=== PATIENT | male | born 1960 | race Caucasian/White ===

== ENCOUNTER 2016-07-27 04:31 | Emergency (ER) | payer OTHER ==
--- NOTE | ~2016-07-27 | CT2 ---
[facility] A Service of [facility] RADIOLOGY TEXT RESULTS PATIENT: RONNI LEWIS LOCATION: [facility] : 56 UNIT #: [id number] AGE: [address]: Jaron Dawson MD SEX: M ORDER DR: [id number] [facility] [address] [place], [place] [address] [id number] MR#: [id number] Acc #: [id number] NAME: RONNI LEWIS. : 1960 SEX: M STUDY DATE/TIME: 07/27/2016 6:34 UNIT: [facility] ROOM: STUDY DESCRIPTION: CT Abd and Pelv W Cont Attending Physician: Jaron Dawson M.D. Ordering Physician: Ed Murphy Alves M.D. Primary Care Physician: Robbie Rodarte M.D. MEDICAL IMAGING REPORT This report is preliminary unless electronic signature is present EXAM Abdomen and pelvis CT with contrast. HISTORY Right-sided abdominal pain after falling 3 days ago. TECHNIQUE Axial images were obtained with intravenous contrast. 100 mL of Isovue was used. This CT exam was performed with one or more of the following radiation dose reduction techniques: automatic exposure control, adjustment of mA and/or kV according to patient size, and iterative reconstruction. FINDINGS Patchy infiltrates are seen at both lung bases posteriorly. The infiltrates are nonspecific. They could reflect atelectasis from splinting. There is no evidence of basilar pneumothorax. No lower rib fractures are seen. No upper abdominal solid organ abnormalities are noted. There is no evidence of retroperitoneal adenopathy or ascites. No distended bowel loops are seen. In the pelvis, there is no evidence of adenopathy, mass, or fluid collection. No lower thoracic or lumbar vertebral body fractures are noted. IMPRESSION Negative abdomen and pelvis CT except for lower lung field bibasilar infiltrates. This could reflect atelectasis from splinting. No evidence of a pneumothorax. No lower rib fracture is seen. Dictated by... Nicola Isaac M.D. [facility] A Service of [facility] RADIOLOGY TEXT RESULTS PATIENT: RONNI LEWIS LOCATION: [facility] #: [id number] : 56 UNIT #: [id number] AGE: [address]: Jaron Dawson MD SEX: M ORDER DR: THIS IS AN ELECTRONICALLY VERIFIED REPORT Nicola Isaac M.D. at 07/27/2016 3:26 PM CAM/natasha TD: 07/27/2016 09:56 JOB #: [id number] MEDICAL IMAGING REPORT COPY
[2016-07-27 05:05] LABS: BASOPHIL# 0.1 X10e3 (0-0.3); BASOPHIL% 0.5 % (0-2.5); EOSINOPHIL# 0.1 X10e3 (0-0.7); HEMATOCRIT 40.2 % (38.0-50.0); LYMPHOCYTE# 4.1 X10e3 (1.0-3.5); LYMPHOCYTE% 32.8 % (17.0-45.0); MEAN CELL VOLUME 86.5 FL (83-96); MEAN CORPUSCULAR HEMOGLOBIN 30.1 PG (28-34); MEAN CORPUSCULAR HGB CONC 34.8 g/dL (30-36); MEAN PLATELET VOLUME 6.5 FL (6.5-11.5); MONOCYTE# 0.8 X10e3 (0-1.0); MONOCYTE% 6.4 % (3.0-12.0); NEUTROPHIL# 7.4 X10e3 (1.5-7.1); NEUTROPHIL% 59.3 % (40-75); PLATELET COUNT 340 X10e3 (140-420); RED BLOOD COUNT 4.65 X10e (3.90-5.60); RED CELL DISTRIBUTION WIDTH 14.6 % (11.0-15.5); WHITE BLOOD COUNT 12.5 X10e3 (4.0-10.5)
[2016-07-27 05:10] LABS: DIFF IND NO
[2016-07-27 05:51] LABS: ALBUMIN SERUM 3.5 g/dL (3.5-5.0); ALKALINE PHOSPHATASE 112 U/L (32-92); ALT (SGPT) 21 U/L (10-40); AST (SGOT) 22 U/L (10-42); BILIRUBIN, DIRECT 0.3 mg/dL (0.0-0.2); BILIRUBIN,INDIRECT 0.4 mg/dL (0.0-0.9); BILIRUBIN,TOTAL 0.7 mg/dL (0.2-2.0); BLOOD UREA NITROGEN 12 mg/dL (9-23); CALCIUM SERUM 8.9 mg/dL (8.4-10.2); CARBON DIOXIDE 25 mmol/L (22-31); CHLORIDE 99 mmol/L (100-111); GLOM FILT RATE Estimated ABOVE60 mL/min (>60); GLUCOSE FASTING 120 mg/dL (70-110); POTASSIUM 3.3 mmol/L (3.5-5.1); PROTEIN TOTAL SERUM 7.4 g/dL (6.0-8.3); SODIUM 133 mmol/L (135-145)
== END 2016-07-27 09:05 | disposition home or self-care (01) ==
LOC: CED 04:31
PROVIDERS: Emergency Medicine
DX: S30.1XXA Contusion of abdominal wall, initial encounter (principal); J44.9 Chronic obstructive pulmonary disease, unspecified; B19.20 Unspecified viral hepatitis C without hepatic coma; F17.210 Nicotine dependence, cigarettes, uncomplicated; Z98.890 Other specified postprocedural states; W18.09XA Striking against other object with subsequent fall, initial encounter; Y92.009 Unspecified place in unspecified non-institutional (private) residence as the place of occurrence of the external cause
CPT/HCPCS: 36415; 74177; 80048; 80076; 83605; 85025; 96374; 96375; 99284; J1885; J2270; J2405; Q9967

== ENCOUNTER 2016-09-02 09:31 | Inpatient (IN) | payer OTHER ==
--- NOTE | ~2016-09-02 | DS ---
Unit #: [id number] #: [id number] Patient: RIC LEWIS [id number] [address] [place], [place] [address] [id number] I MR#: [id number] NAME: RIC LEWIS. ROOM: 216 Age: 56 Sex: M Admission Date: 09/02/2016 : 1960 Discharge Date: 09/06/2016 Attending Physician: Katelynn Gamboa M.D. Primary Care Physician: Robbie Rodarte M.D. DISCHARGE SUMMARY FINAL DIAGNOSES 1. Left forearm abscess and cellulitis secondary to intravenous drug abuse. 2. Status post incision and drainage by [facility]. 3. Hypertension, not controlled. 4. Chronic obstructive pulmonary disease. 5. History of depression/history of opiate use disorder. 6. History of alcohol abuse. 7. History of hepatitis C. 8. Tobacco abuse. DISCHARGE MEDICATIONS 1. Bactrim DS 1 tablet p.o. b.i.d. for 10 days. 2. Proventil inhaler b.i.d. Continue home dose. 3. Neurontin 600 mg t.i.d., which is a home dose. Continue. 4. Celexa 20 mg q.h.s. 5. Trazodone 75 mg at bedtime. 6. Lisinopril 20 mg daily. 7. Fish oil capsule daily. 8. Continue oxycodone at home. CONSULTATIONS DONE DURING HOSPITALIZATION 1. Dr. Almaguer for [facility]. 2. Dr. Jose Veliz from psychiatric service. 3. Infectious disease, Dr. Charles. PROCEDURES DONE Excisional debridement of an abscess on the left forearm posterolaterally. This procedure was performed by Dr. Almaguer on 09/04/2016. DIAGNOSTIC STUDIES LAB WORKUP ON DISCHARGE: Wound culture is positive for MRSA 1+. BMP shows sodium of 138, potassium 4, chloride 105, BUN 11, creatinine 0.9. CBC shows WBC 10.9, hemoglobin 14.2, hematocrit 41.8, platelet count of 310. Blood cultures were negative. HOSPITAL COURSE Mr. Ric Lewis is a 56-year-old male who has a history of IV drug abuse, was admitted because of left forearm cellulitis and abscess. He self injects himself. Ironically, he is in a needle-exchange program, but he does admit to licking his needles. The patient was admitted to the med/surg unit. [facility] was consulted. The patient had I and D done. Was on IV antibiotics during the hospitalization, which is being changed to Bactrim. Unit #: [id number] #: [id number] Patient: RIC LEWIS The patient's blood pressure was elevated during hospitalization. Blood pressure medications are being started. That needs to be continued as an outpatient, and blood pressure needs to be checked as per primary care provider. The patient was also seen by Dr. Jose Veliz for opiate use disorder, alcohol use disorder, major depressive disorder. The patient has been started on Celexa as per his recommendations and trazodone as per his recommendations. The patient is being discharged home in stable condition. PHYSICAL EXAMINATION VITAL SIGNS ON DISCHARGE: Blood pressure is 142/88, respiratory rate 20, pulse 69, temperature 97.6. RESPIRATORY: Chest has fair air entry. No adventitious sounds. CVS: S1, S2 positive. Regular rhythm. EXTREMITIES: Left forearm dressing is present. ABDOMEN: Soft. DISCHARGE INSTRUCTIONS 1. The patient is being discharged home in stable condition. 2. Home health consult is being done. 3. Continue wound care as per surgery. 4. Follow up with [facility], [phone], in one week. 5. Follow up with primary care provider in 1 week to follow up on blood pressure. 6. Prescriptions have been written for the patient. 7. Tobacco cessation counselling done. Dictated by... Shad Lucio TD: 09/07/2016 11:11 JOB #: [id number] DISCHARGE SUMMARY Page 1 of 1 X Katelynn Gamboa MD X DISCHARGE SUMMARY
--- NOTE | ~2016-09-02 | EKG ---
PATIENT: RONNI LEWIS UNIT #: [id number] Ventricular Rate: 91 BPM Atrial Rate: 91 BPM P-R Interval: 126 ms QRS Duration: 88 ms Q-T Interval: 362 ms QTC Calculation(Bezet): 445 ms P [place]: 67 degrees Calculated R [place]: 67 degrees Calculated T [place]: 65 degrees Diagnosis Line: Normal sinus rhythm Diagnosis Line: Normal ECG Diagnosis Line: No previous ECGs available Diagnosis Line: Confirmed by ART GAMBOA MD ([id number]) on 09/03/2016 Diagnosis Line: 10:45:38 PM INTERPRETING MD: BEE COLEY
--- NOTE | ~2016-09-02 | OR ---
Unit #: [id number] #: [id number] Patient: RONNI LEWIS [id number] [address] [place], [place] [address] [id number] I MR#: [id number] NAME: RONNI LEWIS ROOM: 216 Date of Procedure: 09/04/2016 Admission Date: 09/02/2016 Surgeon: Brandon Almaguer Jr., M.D. : 1960 Attending Physician: Katelynn Gamboa M.D. Primary Care Physician: Robbie Rodarte M.D. OPERATIVE REPORT INDICATIONS FOR PROCEDURE The patient is a 56-year-old black male, who is significantly obese, who initially presented complaining of several abscesses in the arms after injecting illicit drugs. He was noted to have an abscess of the left forearm dorsally and it was felt this should be incised, drained, and surgically debrided. He is brought to the operating room at this time for this procedure. He understands the procedure including the risks, including that of reinfection, nerve and tendon damage, and poor healing and consents. PREOPERATIVE DIAGNOSIS Acute and chronic abscess of the left forearm secondary to drug abuse. POSTOPERATIVE DIAGNOSES Acute and chronic abscess of the left forearm secondary to drug abuse, noting a pocket of approximately 3 cm of pus. ANESTHESIA General with LMA. PROCEDURES PERFORMED Incision and drainage and sharp excisional debridement using a #10 blade scalpel of an abscess of the left forearm posterolaterally. DESCRIPTION OF PROCEDURE The patient was positioned in supine position. After being anesthetized, his arm was placed in the supine position. After being prepped and draped in routine fashion, the area on the forearm, which was posterolateral was isolated and an incision was made in the most central portion of this, with a small amount of drainage of purulent material. This was all done with a #10 blade scalpel. The skin was then removed with the abscess being unroofed and cultures for aerobic and anaerobic organisms were sent. Additional debridement was performed with Metzenbaum scissors as well as a #10 blade scalpel and after hemostasis was achieved with Bovie cautery, the wound was irrigated with saline solution and packed with saline moist dry dressings. Sterile dressings were applied externally. Estimated blood loss less than 50 mL. The patient received less than 1000 mL crystalloid solution during the procedure. Sponges and instruments counts were correct x3. No drains were used. No complications. The patient was taken to the recovery room with stable vital signs in satisfactory condition. Unit #: [id number] #: [id number] Patient: RONNI LEWIS Dictated by... Brandon Almaguer Jr., M.Betsy. DAVID/sean TD: 09/05/2016 01:26 JOB #: [id number] OPERATIVE REPORT Page 1 of 1 X Brandon Almaguer MD X PROCEDURE OPERATIVE NOTE
--- NOTE | ~2016-09-02 | HP ---
Unit #: [id number] #: [id number] Patient: RONNI LEWIS [id number] [address] [place], [place] [address] [id number] I MR#: [id number] NAME: RONNI LEWIS. ROOM: 216 Age: 56 Sex: M Admission Date: 09/02/2016 : 1960 Attending Physician: Katelynn Gamboa M.D. Primary Care Physician: Robbie Rodarte M.D. HISTORY AND PHYSICAL HISTORY AND EXAM 56-year-old gentleman with a long history of IV drug abuse, presents to the hospital with cellulitis and abscess in the left forearm due to self-injection of heroin and methamphetamine. He says he last shot up last night. Ironically he is in the needle exchange program but he does admit to licking his needles. PAST MEDICAL HISTORY Opioid abuse, osteoarthritis, COPD, hepatitis C. PAST SURGICAL HISTORY He has had left hip replaced with a revision. He has had drainage of an abscess of the left foot. He also had drainage of the right upper extremity abscess. ALLERGIES The only allergy he knows of is Darvon. MEDICATIONS He is not on any home medications. CURRENT HOSPITAL MEDICATION Vancomycin and Zosyn. FAMILY HISTORY He is unaware of any chronic or inheritable diseases. SOCIAL HISTORY Lives with "a friend" and collects disability. Long history of opioid abuse to include cocaine, heroin and methamphetamine. He drinks a fifth of liquor on a daily basis. Smokes 1/2 pack a day. REVIEW OF SYSTEMS Unremarkable. CURRENT MEDICATIONS VITAL SIGNS: Temperature is 98.5, pulse 92, respiration 20, blood pressure 164/93. GENERAL: Awake, alert and oriented. Nehemias complected but otherwise unremarkable. CARDIAC: Regular rhythm. LUNGS: Clear. ABDOMEN: Soft. EXTREMITIES: Multiple track mckeon. In the left forearm he has an abscess Unit #: [id number] #: [id number] Patient: RONNI LEWIS with associated cellulitis. NEUROLOGIC: Grossly intact. DIAGNOSTIC STUDIES LABORATORY STUDIES: Chemistries generally unremarkable. White count 15,900, hemoglobin 16.3, platelets are 352,000. Blood cultures pending. IMAGING STUDIES: No x-rays. ASSESSMENT AND PLAN 56-year-old gentleman with an abscess of the left forearm secondary to long-term IV drug abuse. He is on appropriate antibiotics but will need incision and drainage in the morning. I discussed the procedure with the patient including risks, benefits, complications and postoperative expectations including open wound requiring packing. He understands and agrees to proceed. Dictated by Shad Nettles TD: 09/03/2016 05:28 JOB #: [id number] HISTORY AND PHYSICAL Page 1 of 1 X Nicola Wong MD X HISTORY AND PHYSICAL
--- NOTE | ~2016-09-02 | CO ---
Unit #: [id number] #: [id number] Patient: RIC LEWIS [id number] [facility] [address]. [place], [place] [address] [id number] I MR#: [id number] NAME: RIC LEWIS ROOM: 216 Age: 56 Sex: M Admission Date: 09/02/2016 : 1960 Attending Physician: Katelynn Gamboa M.D. Primary Care Physician: Robbie Rodarte M.D. Consultation Date: 09/05/2016 CONSULTATION REPORT REASON FOR CONSULTATION Followup. DISCUSSION Mr. Ric Lewis is a 56-year-old male, seen on 09/05/2016 in room 216, bed 1 at [facility]. The patient recovering from surgery, had an I and D done on his left wrist area. The patient reports still feeling sad, depressed, in pain, flat affect, sad, dysphoric but denied any suicidal or homicidal ideation. Denied any psychotic symptom. Compliant with medication. The patient's vital signs; temperature 98.4, pulse 81, respirations 20, blood pressure 153/99, oxygen saturation 100%. REVIEW OF SYSTEM Complete review of systems, the patient reported in pain and severe anxiety and depression. MENTAL STATUS EXAMINATION General appearance, the patient dressed casually. Attention span and concentration, fair. Speech, regular rate. Oriented in time, place, and person. Mood and affect, sad, and depressed. Thought process, coherent. Thought content, the patient denied any thoughts of harming self or others or any hallucination, but hopelessness, worthlessness, sad, depressed, tearful. Recent and remote memory, fair. Language, able to name object and repeat phrases. Fund of knowledge, fair. Insight and judgment, fair to slightly impaired. DIAGNOSES 1. Opioid use disorder, severe, F11.20. 2. Alcohol use disorder, severe, F10.20. 3. Major depressive disorder, recurrent, severe, F33.2. ASSESSMENT/PLAN 1. Supportive psychotherapy and psychoeducation provided to the patient. 2. Educated about benefits and side effects of medication and course and prognosis of illness. Advised to continue with current medication and if needed consider further adjustment of medication. The patient was started on Celexa 20 mg daily and Desyrel 75 mg at bedtime for sleep, and Vistaril 25 mg t.i.d. for anxiety. We will continue to follow. If needed, consider further adjustment of medication and if needed, consider transferring to [facility] after the patient is medically cleared. Dictated by... Jose Veliz M.D. Unit #: [id number] #: [id number] Patient: RIC LEWIS Ricardo FREDERICK/sean TD: 09/07/2016 01:54 JOB #: [id number] CONSULTATION REPORT Page 1 of 1 X Jose Veliz MD X CONSULTATION REPORT
--- NOTE | ~2016-09-02 | CO ---
Unit #: [id number] #: [id number] Patient: RONNI LEWIS [id number] [address] [place], [place] [address] [id number] I MR#: [id number] NAME: RONNI LEWIS. ROOM: 216 Age: 56 Sex: M Admission Date: 09/02/2016 : 1960 Attending Physician: Katelynn Gamboa M.D. Primary Care Physician: Robbie Rodarte M.D. Consultation Date: 09/03/2016 CONSULTATION REPORT The patient was admitted to Dr. Gamboa. REASON FOR CONSULTATION Antibiotic management in a patient with abscess. HISTORY OF PRESENT ILLNESS This is a 56-year-old male who is somewhat lethargic but is able to provide me with some history as well as review of chart. The patient has a history of IV drug abuse and reports that he came to the emergency room with swelling of his left forearm. The patient reports multiple injection sites of heroin to this area over the last few weeks and it has progressively gotten worse. The patient denies any fever or chills at home. He denies any other abscessed areas in any other parts of his body. He has multiple injection sites and track mckeon on his forearms. The patient was taken for an incision and drainage today; however, due to complications with the consent, it was rescheduled for tomorrow. The patient is currently back in the room. He denies any fever, chills. He does report occasional nausea. No vomiting or diarrhea. He reports minimal headache. PAST MEDICAL HISTORY 1. Opioid abuse. 2. Osteoarthritis. 3. COPD. 4. Hepatitis C. PAST SURGICAL HISTORY 1. Left hip replacement with revision. 2. History of abscess, left foot. ALLERGIES Darvon. MEDICATIONS 1. Vancomycin. 2. Zofran. For other medications, please refer to patient's MAR. SOCIAL HISTORY The patient lives with others. He has positive drug abuse including cocaine, heroin, and methamphetamine per the chart. He drinks a fifth of liquor per day. He smokes half pack per day. Unit #: [id number] #: [id number] Patient: RONNI LEWIS REVIEW OF SYSTEMS Negative except for as previously mentioned in the history of present illness. PHYSICAL EXAMINATION VITAL SIGNS: Temperature is 97.4, pulse is 92, blood pressure 163/92, and respiratory rate 18. GENERAL: This is a no apparent distress male, who is somewhat lethargic but able to answer questions and lying in the bed. HEENT: His pupils are equal. NECK: His neck is supple. CARDIOVASCULAR: S1, S2. Regular rate and rhythm. PULMONARY: Clear to auscultation bilaterally with no wheezes or rhonchi noted. ABDOMEN: Positive bowel sounds. Soft, nontender. EXTREMITIES: Left forearm with obvious abscess, erythema. No active drainage at this time. Positive tenderness. DIAGNOSTIC STUDIES LABORATORY: BUN 9, creatinine 0.9, sodium 136, potassium 4, chloride 103, CO2 of 24. Bilirubin 1, AST 30, ALT 26. White blood cell count 12.6 which is improved from 15.9, hemoglobin 14.8, hematocrit 43.6, platelets 290,000. Blood cultures are currently pending. IMAGING: No imaging studies available at this time. IMPRESSION This is a 56-year-old male with history of IV drug abuse, last reported the day prior to admission. The patient with multiple injection sites to the same vein in the left forearm now with abscess and cellulitis. At this time, agree with surgery recommendations for incision and drainage when available by their team. Will continue vancomycin and Zosyn. Will continue to follow along patient's blood cultures and leukocytosis and if he does have bacteremia, will need to be worked up for endocarditis. He is well covered with vancomycin and Zosyn at this time. Will have the nursing staff call with any positive blood cultures and check a CBC and BMP in the a.m. Thank you for allowing us to participate in the care of this patient. Further recommendations to follow pending patient's clinical course. Dictated by... Marii Cleveland A.P.R.N. for Shad Torrez/juan TD: 09/03/2016 11:19 JOB #: [id number] Unit #: [id number] #: [id number] Patient: RONNI LEWIS CONSULTATION REPORT Page 1 of 1 X X CONSULTATION REPORT
--- NOTE | ~2016-09-02 | CO ---
Unit #: [id number] #: [id number] Patient: RIC LEWIS [id number] [address] [place], [place] [address] [id number] I MR#: [id number] NAME: RIC LEWIS. ROOM: 216 Age: 56 Sex: M Admission Date: 09/02/2016 : 1960 Attending Physician: Katelynn Gamboa M.D. Primary Care Physician: Robbie Rodarte M.D. Consultation Date: 09/04/2016 CONSULTATION REPORT DISCUSSION Mr. Ric Alfonso is a 56-year-old male, seen as a followup on 09/04/2016 in room 216 at [facility]. The patient came back after I and D surgery. The patient still somewhat guarded and confused, but no agitation or aggression. The patient is tolerating medication fairly well. Unable to give any reliable information. Sad and depressed. REVIEW OF SYSTEMS Complete review of systems unremarkable. MENTAL STATUS EXAMINATION General appearance, the patient dressed casually in hospital attire. Attention span and concentration, fair. Speech, slow. Oriented in place. Mood and affect; sad, dysphoric, flat. Thought process, circumstantial. Thought content, guarded and paranoid. Recent and remote memory, poor. Language, intact. Fund of knowledge, poor. Insight and judgment, impaired. DIAGNOSES Psychiatric: 1. Opioid use disorder, severe, F11.20. 2. Alcohol use disorder, severe, F10.20. 3. Major depressive disorder, recurrent, severe, F33.2. 4. Delirium, F05. ASSESSMENT/PLAN 1. Supportive psychotherapy and psychoeducation provided to the patient. 2. Educated about benefits and side effects of medication and course and prognosis of illness. Advised to continue with current treatment. If needed, consider further adjustment of medication. Dictated by... Jose Veliz M.D. OTONIEL/sean TD: 09/05/2016 05:42 JOB #: [id number] Unit #: [id number] #: [id number] Patient: RIC LEWIS CONSULTATION REPORT Page 1 of 1 X Jose Veliz MD CONSULTATION REPORT
--- NOTE | ~2016-09-02 | HP ---
Unit #: [id number] #: [id number] Patient: RONNI LEWIS [id number] [address] [address] [id number] I MR#: [id number] NAME: RONNI LEWIS. ROOM: 216 Age: 56 Sex: M Admission Date: 09/02/2016 : 1960 Attending Physician: Katelynn Gamboa M.D. Primary Care Physician: Robbie Rodarte M.D. HISTORY AND PHYSICAL CHIEF COMPLAINT Left hand pain and swelling. HISTORY OF PRESENTING ILLNESS A 56-year-old gentleman who has a history of IV drug abuse, tobacco abuse, and alcohol abuse, presented to the ER complaining of left hand pain which was cellulitis and abscess. Patient injects himself with heroin and methamphetamine. He is in needle exchange program, but he licks his needles before injecting himself. He did not complain of fever, chills, or rigors, no complaint of nausea or vomiting, no complaint of abdominal pain, no complaint of chest pain, and no leg swelling or syncopal episode. PAST MEDICAL HISTORY 1. Chronic obstructive pulmonary disease. 2. Opioid abuse. 3. Osteoarthritis. 4. Hepatitis C. PAST SURGICAL HISTORY 1. Left hip replacement. 2. Left foot surgery. HOME MEDICATIONS 1. Fish oil capsule. 2. Oxycodone. 3. Ventolin inhaler. ALLERGIES No known drug allergies. SOCIAL HISTORY Patient is a smoker and smokes a half pack per day. He has been smoking for a long period of time. Patient does have a history of alcohol abuse. He drinks a half to one pint per day, but the last drink was 48 hours or so ago. Patient also has IV drug abuse history. REVIEW OF SYSTEMS As per History of Presenting Illness. PHYSICAL EXAMINATION GENERAL: Patient is lying in bed in no respiratory distress. VITAL SIGNS: T-max 99.6, blood pressure 128/60, respiratory rate 19, and Unit #: [id number] #: [id number] Patient: RONNI LEWIS pulse is 99. HEENT: Head is normocephalic. Eye movements are normal. NECK: Supple. CHEST: Fair air entry. No additional sounds. CARDIOVASCULAR: S1 and S2 positive. Regular rhythm. ABDOMEN: Soft. No tenderness, no rigidity. EXTREMITIES: Negative edema. Pulses are palpable. On the left forearm, there is an abscess with associated cellulitis. Multiple track mckeon are noted. CENTRAL NERVOUS SYSTEM: Awake, alert, and oriented x3, although yesterday he was pretty lethargic secondary to IV morphine. DIAGNOSTIC STUDIES LABORATORY: WBC 15.9, hemoglobin 16.3, hematocrit 47.1, and platelet count of 352,000. Sodium 132, potassium 3.6, chloride 99, BUN 9, and creatinine 0.8. Blood cultures are negative so far. ASSESSMENT Patient is being admitted to medical/surgical unit with: 1. Left arm cellulitis. 2. Left arm abscess. 3. History of IV drug abuse. 4. Hypertension. 5. Chronic obstructive pulmonary disease. 6. Hepatitis C. 7. Osteoarthritis. 8. Tobacco abuse. 9. Alcohol abuse. PLAN 1. Admit to med/surg. Dr. Wong has been consulted. Patient is scheduled for I and D. Pain medications are being prescribed. 2. Hypertension is not very well controlled. We are going to increase Zestril to 20 mg daily. 3. History of IV drug abuse, depression, and alcohol abuse. Dr. Veliz is being consulted for management. 4. Chronic obstructive pulmonary disease seems to be stable at this time. 5. Tobacco cessation counseling done. 6. The plan of care has been discussed with patient. He does verbalize understanding. 1. Dictated by Shad Lucio/ila TD: 09/04/2016 17:36 JOB #: [id number] Unit #: [id number] #: [id number] Patient: RONNI LEWIS HISTORY AND PHYSICAL Page 1 of 1 X Katelynn Gamboa MD HISTORY AND PHYSICAL
--- NOTE | ~2016-09-02 | CO ---
Unit #: [id number] #: [id number] Patient: RIC LEWIS [id number] [facility] [address] [place], [place] [address] [id number] MR#: [id number] NAME: RIC LEWIS ROOM: 216 Age: 56 Sex: M Admission Date: 09/02/2016 : 1960 Attending Physician: Katelynn Gamboa M.D. Primary Care Physician: Robbie Rodarte M.D. Consultation Date: 09/03/2016 CONSULTATION REPORT REASON FOR CONSULTATION Agitation, confusion. HISTORY OF PRESENT ILLNESS Mr. Ric Lewis is a 56-year-old white male, seen on 09/03/2016 in room 216 at [facility]. The patient admitted on 09/02/2016. The patient has a history of IV drug abuse, presented with cellulitis and abscess on the left forearm due to self injection of heroin and methamphetamine. The patient's last use was last night. The patient was guarded, paranoid, agitated, hostile, aggressive. Subsequently, the patient was given Haldol 10 mg, Cogentin 1 mg, and Ativan 1 mg deep intramuscular. The patient was guarded, paranoid, attending to internal stimuli, confused, unable to give any reliable information. PAST PSYCHIATRIC HISTORY Remarkable for history of substance abuse, depression, as mentioned above, and history of previous treatment at [facility]. MEDICAL HISTORY History of osteoarthritis, COPD, hepatitis C, and opioid abuse. MEDICATION HISTORY Please refer to MAR. FAMILY HISTORY AND SOCIAL HISTORY The patient has a poor support system. No history of any abuse. History of substance abuse as mentioned above. REVIEW OF SYSTEMS Complete review of systems is unremarkable except as mentioned above. MENTAL STATUS EXAMINATION General appearance, the patient dressed casually in hospital attire. Attention span and concentration, poor. Speech, slow. Oriented in self. Mood and affect, labile. Thought process, circumstantial. Thought content, guarded, paranoid, attending to internal stimuli but denied any thoughts of harming self or others. Recent and remote memory, poor. Language, fair. Fund of knowledge, impaired. Insight and judgment, impaired. DIAGNOSES Psychiatric: Opioid use disorder, severe, F11.20; alcohol use disorder, severe, F10.20; major depressive disorder, recurrent, F33.2; delirium, F05. Unit #: [id number] #: [id number] Patient: RIC LEWIS Secondary diagnosis: Deferred. Medical diagnosis: Please refer to H and P. Stressors: Psychosocial stressors. ASSESSMENT/PLAN 1. Supportive psychotherapy and psychoeducation provided to patient, but the patient unable to comprehend much. 2. Recommending at this time to continue with current treatment. If needed, consider further adjustment of medication. We will continue to follow. Please feel free to call if any questions, telephone #[phone]. Dictated by... Shad Langley/sean TD: 09/04/2016 03:05 JOB #: [id number] CONSULTATION REPORT Page 1 of 1 X Jose Veliz MD X CONSULTATION REPORT
[2016-09-02 11:09] LABS: BASOPHIL# 0.1 X10e3 (0-0.3); BASOPHIL% 0.3 % (0-2.5); DIFF IND NO; EOSINOPHIL% 0.1 % (0.0-7.0); HEMATOCRIT 47.1 % (38.0-50.0); HEMOGLOBIN 16.3 gm/dL (13.0-16.0); LYMPHOCYTE# 2.2 X10e3 (1.0-3.5); LYMPHOCYTE% 14.1 % (17.0-45.0); MEAN CELL VOLUME 85.8 FL (83-96); MEAN CORPUSCULAR HEMOGLOBIN 29.8 PG (28-34); MEAN CORPUSCULAR HGB CONC 34.7 g/dL (30-36); MEAN PLATELET VOLUME 6.4 FL (6.5-11.5); MONOCYTE# 0.9 X10e3 (0-1.0); MONOCYTE% 5.7 % (3.0-12.0); NEUTROPHIL# 12.7 X10e3 (1.5-7.1); NEUTROPHIL% 79.8 % (40-75); PLATELET COUNT 352 X10e3 (140-420); RED BLOOD COUNT 5.49 X10e (3.90-5.60); RED CELL DISTRIBUTION WIDTH 14.6 % (11.0-15.5); WHITE BLOOD COUNT 15.9 X10e3 (4.0-10.5)
[2016-09-02 11:31] LABS: BUN/CREATININE RATIO 11.25; CREATININE SERUM 0.8 mg/dL (0.6-1.4); GLOM FILT RATE Estimated 98.5 mL/min (>60); POTASSIUM 3.6 mmol/L (3.5-5.1)
[2016-09-02 11:32] LABS: CALCIUM SERUM 9.3 mg/dL (8.4-10.2); PROTEIN TOTAL SERUM 8.5 g/dL (6.0-8.3)
[2016-09-02] MEDS ORDERED: FISH OIL 1,0001 EAC3 PO (14:57)
[2016-09-02] MEDS ORDERED: OXYCODONE HCL10 MG PO (14:58)
[2016-09-02] MEDS ORDERED: ALBUTEROL17 GM INH (14:58)
[2016-09-02] MEDS ORDERED: ALBUTEROL MININEB NEB (14:59)
[2016-09-02] MEDS ORDERED: GABAPENTIN600 MG PO (16:16)
[2016-09-03 06:52] LABS: HEMATOCRIT 43.6 % (38.0-50.0); HEMOGLOBIN 14.8 gm/dL (13.0-16.0); MEAN CELL VOLUME 87.2 FL (83-96); MEAN CORPUSCULAR HEMOGLOBIN 29.6 PG (28-34); MEAN CORPUSCULAR HGB CONC 33.9 g/dL (30-36); RED CELL DISTRIBUTION WIDTH 14.4 % (11.0-15.5); WHITE BLOOD COUNT 12.6 X10e3 (4.0-10.5)
[2016-09-03 07:52] LABS: CREATININE SERUM 0.9 mg/dL (0.6-1.4); GLOM FILT RATE Estimated 93.8 mL/min (>60); MAGNESIUM 1.8 mg/dL (1.6-3.0)
[2016-09-04 13:53] LABS: HEMATOCRIT 42.1 % (38.0-50.0); HEMOGLOBIN 14.7 gm/dL (13.0-16.0); MEAN CELL VOLUME 86.3 FL (83-96); MEAN CORPUSCULAR HEMOGLOBIN 30.1 PG (28-34); MEAN CORPUSCULAR HGB CONC 34.9 g/dL (30-36); MEAN PLATELET VOLUME 6.2 FL (6.5-11.5); RED BLOOD COUNT 4.88 X10e (3.90-5.60); RED CELL DISTRIBUTION WIDTH 14.2 % (11.0-15.5)
[2016-09-04 15:14] LABS: CALCIUM SERUM 8.5 mg/dL (8.4-10.2); CREATININE SERUM 0.8 mg/dL (0.6-1.4); GLOM FILT RATE Estimated 98.5 mL/min (>60); POTASSIUM 3.7 mmol/L (3.5-5.1)
[2016-09-05 07:11] LABS: HEMATOCRIT 41.8 % (38.0-50.0); HEMOGLOBIN 14.2 gm/dL (13.0-16.0); MEAN CELL VOLUME 87.4 FL (83-96); MEAN CORPUSCULAR HEMOGLOBIN 29.8 PG (28-34); MEAN CORPUSCULAR HGB CONC 34.1 g/dL (30-36); MEAN PLATELET VOLUME 6.7 FL (6.5-11.5); RED BLOOD COUNT 4.78 X10e (3.90-5.60); RED CELL DISTRIBUTION WIDTH 14.4 % (11.0-15.5); WHITE BLOOD COUNT 10.9 X10e3 (4.0-10.5)
[2016-09-05 08:44] LABS: BUN/CREATININE RATIO 12.22; CREATININE SERUM 0.9 mg/dL (0.6-1.4); GLOM FILT RATE Estimated 93.8 mL/min (>60)
[2016-09-06] MEDS ORDERED: LISINOPRIL20 MG PO (11:49)
[2016-09-06] MEDS ORDERED: BACTRIM DS TAB1 EACH PO (11:50)
[2016-09-06] MEDS ORDERED: CELEXA20 M1 PO (11:53)
[2016-09-06] MEDS ORDERED: TRAZODONE PO (11:54)
[2016-09-06] MEDS ORDERED: LORCET 5-325 M1 EACH PO (11:56)
== END 2016-09-06 14:20 | disposition home or self-care (01) | DRG 603 ==
LOC: CED 09:31 → CEDOF 11:45 → C2A 14:20
PROVIDERS: Internal Medicine; Nurse Practitioner; Specialist; Surgery
PROC: 02HV33Z Insertion of Infusion Device into Superior Vena Cava, Percutaneous Approach (ICD-10-PCS; 2016-09-02)
PROC: B548ZZA Ultrasonography of Superior Vena Cava, Guidance (ICD-10-PCS; 2016-09-02)
PROC: 3E04329 Introduction of Other Anti-infective into Central Vein, Percutaneous Approach (ICD-10-PCS; 2016-09-02)
PROC: 0H9EXZZ Drainage of Left Lower Arm Skin, External Approach (ICD-10-PCS; principal; 2016-09-04 10:30)
DX: L02.414 Cutaneous abscess of left upper limb (principal); F33.2 Major depressive disorder, recurrent severe without psychotic features; F11.20 Opioid dependence, uncomplicated; L03.114 Cellulitis of left upper limb; B95.62 Methicillin resistant Staphylococcus aureus infection as the cause of diseases classified elsewhere; F10.20 Alcohol dependence, uncomplicated; I10 Essential (primary) hypertension; J44.9 Chronic obstructive pulmonary disease, unspecified; F17.210 Nicotine dependence, cigarettes, uncomplicated; Z79.891 Long term (current) use of opiate analgesic; Z79.899 Other long term (current) drug therapy; B19.20 Unspecified viral hepatitis C without hepatic coma
CPT/HCPCS: 36415; 80048; 80053; 80202; 83735; 85025; 85027; 87040; 87070; 87075; 87186; 87205; 93005; 94640; 94760; 99285; J0360; J0515; J1630; J2060; J2250; J2270; J2405; J2543; J3010; J3370

== ENCOUNTER 2016-09-24 14:59 | Emergency (ER) | payer OTHER ==
[~2016-09-24 14:59] MED LIST: ALBUTEROL MININEB NEB; ALBUTEROL17 GM INH; BACTRIM DS TAB1 EACH PO; CELEXA20 M1 PO; FISH OIL 1,0001 EAC3 PO; GABAPENTIN600 MG PO; LISINOPRIL20 MG PO; LORCET 5-325 M1 EACH PO; OXYCODONE HCL10 MG PO; TRAZODONE PO
== END 2016-09-24 16:08 | disposition left against medical advice (07) ==
LOC: CED 14:59
DX: T40.1X1A Poisoning by heroin, accidental (unintentional), initial encounter (principal); J44.9 Chronic obstructive pulmonary disease, unspecified; I10 Essential (primary) hypertension; Z88.8 Allergy status to other drugs, medicaments and biological substances; Z79.899 Other long term (current) drug therapy
CPT/HCPCS: 96361; 96374; 99284; J2310

== ENCOUNTER → 2016-11-19 | Outpatient (CLI) | payer OTHER ==
--- NOTE | ~2016-11-19 | MR113 ---
[facility] A Service of [facility] RADIOLOGY TEXT RESULTS PATIENT: RONNI LEWIS LOCATION: [facility] : 56 UNIT #: [id number] AGE: [address]: Kar Alicea MD SEX: M ORDER DR: [id number] [facility] [address] [place], [place] [address] [id number] O MR#: [id number] Acc #: [id number] NAME: RONNI LEWIS. : 1960 SEX: M STUDY DATE/TIME: 11/19/2016 9:16 UNIT: [facility] ROOM: STUDY DESCRIPTION: MR Lumbar Wo Contrast Attending Physician: Kar Alicea M.D. Referring Physician: Kar Alicea M.D. Ordering Physician: Kar Alicea M.D. Primary Care Physician: Robbie Rodarte M.D. MRI CENTER REPORT This report is preliminary unless electronic signature is present. EXAM Lumbar spine MRI no contrast DATE OF STUDY 11/19/2016 PROCEDURE Routine lumbar spine MRI without contrast COMPARISON None CLINICAL HISTORY Neck and low back pain, chronic. Low back pain has been radiating to the right with bilateral foot numbness for 2 years. FINDINGS Spine alignment is normal. There are mild degenerative marrow signal changes but the distal cord and conus are normal in position and appearance. The paraspinous soft tissues are unremarkable. At T12-L1, there is a disc bulge and mild canal stenosis, and minimal foraminal narrowing. At L1-2, there is no canal stenosis. There is facet arthropathy and borderline to mild bilateral foraminal narrowing. At L2-3, there is no substantial disc bulge protrusion. There is some mild facet degeneration. There is [id number] left and borderline right foraminal stenosis. At 3-4, there is a disc bulge and mild canal stenosis and borderline right and mild left foraminal stenosis. [facility] A Service of [facility] RADIOLOGY TEXT RESULTS PATIENT: RONNI LEWIS LOCATION: [facility] : 56 UNIT #: [id number] AGE: [address]: Kar Alicea MD SEX: M ORDER DR: At 4-5, disc and endplate change and facet arthropathy cause moderate canal stenosis, unchanged since the prior study. There is moderate right and mild left foraminal stenosis, both unchanged since the prior study. At 5-1, there is disc and endplate change but no canal stenosis and moderate or moderate to severe right and left foraminal stenosis, unchanged. IMPRESSION Lower lumbar degenerative changes not convincingly changed since the study of 06/07/2014; see above for details. Dictated by... Kenny Dawson M.D. THIS IS AN ELECTRONICALLY VERIFIED REPORT Kenny Dawson M.D. at 11/23/2016 5:38 PM TEV/to TD: 11/19/2016 22:03 JOB #: [id number] MRI CENTER REPORT Page 1 of 1 COPY
--- NOTE | ~2016-11-19 | MR32 ---
[facility] A Service of [facility] RADIOLOGY TEXT RESULTS PATIENT: RONNI LEWIS LOCATION: [facility] : 56 UNIT #: [id number] AGE: [address]: Kar Alicea MD SEX: M ORDER DR: [id number] [facility]. [place], [place] [address] [id number] O MR#: [id number] Acc #: [id number] NAME: RONNI LEWIS. : 1960 SEX: M STUDY DATE/TIME: 11/19/2016 8:34 UNIT: [facility] ROOM: STUDY DESCRIPTION: MR Cervical Wo Contrast Attending Physician: Kar Alicea M.D. Referring Physician: Kar Alicea M.D. Ordering Physician: Kar Alicea M.D. Primary Care Physician: Robbie Rodarte M.D. MRI CENTER REPORT This report is preliminary unless electronic signature is present. EXAM Cervical spine MRI without contrast DATE OF STUDY 11/19/2016 PROCEDURE Routine cervical spine MRI without contrast COMPARISON 06/07/2014 HISTORY Chronic neck pain and bilateral arm pain and numbness. Symptoms have been present for about two years and it worsened since a fall about 5 months previous. FINDINGS Alignment is normal. There is osseous union anteriorly via degenerative osteophyte across the anterior portion of the 4-5 disc. Bone marrow signal is normal and the cord is normal in signal. The posterior fossa and its contents are normal and the paraspinous tissues are normal. At 2-3, the canal and foramina are within normal limits. At 3-4, there is a disc bulge and mild canal stenosis, and probably slight cord compression, though there is no abnormal cord signal. There is mild right and moderate left foraminal narrowing, probably all unchanged. At 4-5, there is minimal canal stenosis without cord compression. The right foramen is normal and there is mild left foraminal narrowing. [facility] A Service of [facility] RADIOLOGY TEXT RESULTS PATIENT: RONNI LEWIS [facility] : 56 UNIT #: [id number] AGE: [address]: Kar Alicea MD SEX: M ORDER DR: At 5-6, there is a broad disc and osteophyte complex with moderate cord compression, slightly worsened since the prior study. Again, there is no abnormal cord signal and there is severe bilateral foraminal stenosis. At 6-7, there is a disc bulge and canal stenosis without cord compression and minimal bilateral foraminal narrowing. At 7-1, there is a disc bulge and mild canal stenosis, and mild right and moderate left foraminal narrowing. IMPRESSION Multilevel degenerative change. There is some cord compression, but no abnormal cord signal. Canal stenosis and cord compression most prominent at 5-6 and slightly worsened at that level since the prior study. At other levels for the most part, findings remain stable. Dictated by... Kenny Dawson M.D. THIS IS AN ELECTRONICALLY VERIFIED REPORT Kenny Dawson M.D. at 11/23/2016 5:38 PM TEV/to TD: 11/19/2016 21:37 JOB #: [id number] MRI CENTER REPORT Page 1 of 1 COPY
== END | disposition home or self-care (01) ==
LOC: CMRI 07:38
DX: M48.02 Spinal stenosis, cervical region (principal); M47.892 Other spondylosis, cervical region; M47.896 Other spondylosis, lumbar region
CPT/HCPCS: 72141; 72148

== ENCOUNTER 2016-12-02 23:18 | Emergency (ER) | payer OTHER ==
--- NOTE | ~2016-12-02 | EKG ---
PATIENT: RONNI LEWIS UNIT #: [id number] Ventricular Rate: 107 BPM Atrial Rate: 107 BPM P-R Interval: 126 ms QRS Duration: 84 ms Q-T Interval: 346 ms QTC Calculation(Bezet): 461 ms P Benton: 60 degrees Calculated R Benton: 61 degrees Calculated T Benton: 57 degrees Diagnosis Line: Sinus tachycardia Diagnosis Line: Possible Left atrial enlargement Diagnosis Line: Borderline ECG Diagnosis Line: When compared with ECG of 02-SEP-2016 21:53, Diagnosis Line: No significant change was found Diagnosis Line: Confirmed by CARSON AGUAYO MD ([id number]) on Diagnosis Line: 12/04/2016 4:02:11 PM INTERPRETING MD: DEDE COLEY
--- NOTE | ~2016-12-02 | CR210 ---
[facility] A Service of [facility] RADIOLOGY TEXT RESULTS PATIENT: RONNI LEWIS LOCATION: [facility] : 56 UNIT #: [id number] AGE: [address]: DIXON BAKER APRN SEX: M ORDER DR: [id number] [facility] [address] [place], [place] [address] [id number] E MR#: [id number] Acc #: [id number] NAME: RONNI LEWIS. : 1960 SEX: M STUDY DATE/TIME: 12/03/2016 0:52 UNIT: [facility] ROOM: STUDY DESCRIPTION: CR Ribs Uni 2 View W PA Ch Lt Attending Physician: Dixon Baker Aprn Ordering Physician: Dixon Baker Aprn Primary Care Physician: Robbie Rodarte M.D. MEDICAL IMAGING REPORT This report is preliminary unless electronic signature is present EXAM Left rib series with PA chest INDICATION Left rib pain since fall tonight and shortness of air. FINDINGS A PA view of the chest and oblique views of the left ribs were obtained. The heart size and vascularity are normal. The lungs are clear. No rib fractures are visible. IMPRESSION Normal PA chest and left rib series. Dictated by... Ty Perdomo M.D. THIS IS AN ELECTRONICALLY VERIFIED REPORT Ty Perdomo M.D. at 12/03/2016 1:31 PM KOLBY/gregory TD: 12/03/2016 12:56 JOB #: [id number] MEDICAL IMAGING REPORT Page 1 of 1 COPY
--- NOTE | ~2016-12-02 | CT57 ---
[facility] A Service of [facility] RADIOLOGY TEXT RESULTS PATIENT: RONNI LEWIS LOCATION: [facility] : 56 UNIT #: [id number] AGE: [address]: DIXON BAKER APRN SEX: M ORDER DR: [id number] [place], [place] [address] [id number] E MR#: [id number] Acc #: [id number] NAME: RONNI LEWIS. : 1960 SEX: M STUDY DATE/TIME: 12/03/2016 3:19 UNIT: [facility] ROOM: STUDY DESCRIPTION: CT Chest Wo Cont Attending Physician: Dixon Baker Aprn Ordering Physician: Dixon Baker Aprn Primary Care Physician: Robbie Rodarte M.D. MEDICAL IMAGING REPORT This report is preliminary unless electronic signature is present EXAM CT scan of the chest without contrast. INDICATION Left-sided chest pain after a fall at 7 o'clock yesterday. Shortness of air. COMPARISON No comparison. TECHNIQUE Axial 5 mm images were obtained through the chest without IV contrast. This CT exam was performed with one or more of the following radiation dose reduction techniques: automatic exposure control, adjustment of mA and/or kV according to patient size, and iterative reconstruction. FINDINGS The right lung is clear. There is some basilar atelectasis on the left side. There is a slightly displaced left fifth rib fracture. Otherwise the bones are normal. The visualized portions of the upper abdomen are normal. The visualized thyroid gland is normal. There is no mediastinal or hilar adenopathy. IMPRESSION 1. Left fifth rib fracture is slightly displaced. 2. There is no pneumothorax. 3. There is left base atelectasis. Dictated by... Ty Perdomo M.D. [facility] A Service [facility] RADIOLOGY TEXT RESULTS PATIENT: RONNI LEWIS LOCATION: [facility] : 56 UNIT #: [id number] AGE: [address]: DIXON BAKER APRN SEX: M ORDER DR: THIS IS AN ELECTRONICALLY VERIFIED REPORT Ty Perdomo M.D. at 12/04/2016 5:41 AM KOLBY/natasha TD: 12/03/2016 13:46 JOB #: [id number] MEDICAL IMAGING REPORT Page 1 of 1 COPY
== END 2016-12-03 04:19 | disposition home or self-care (01) ==
LOC: CED 23:18
DX: S22.32XA Fracture of one rib, left side, initial encounter for closed fracture (principal); F17.210 Nicotine dependence, cigarettes, uncomplicated; J44.9 Chronic obstructive pulmonary disease, unspecified; I10 Essential (primary) hypertension; J45.909 Unspecified asthma, uncomplicated; W19.XXXA Unspecified fall, initial encounter; Y92.009 Unspecified place in unspecified non-institutional (private) residence as the place of occurrence of the external cause
CPT/HCPCS: 71101; 71250; 93005; 96372; 99284; J1885